=== PATIENT | female | born 1930 | race Caucasian/White ===

== ENCOUNTER 2017-12-15 14:07 | Emergency (ER) | payer OTHER, MEDICARE, BC ==
[~2017-12-15] VITALS: Ht 165.1 cm; Wt 73.6 kg
[~2017-12-15 14:07] MED LIST: IMODIUM A-D2 MG PO; LUTEIN20 MG PO; MOBIC 7.5MG7.5 MG PO; TIROSINT75 MCG PO; VYTORIN 10 MG-21 TAB PO; XANAX .25M0.25 MG/TA PO
[2017-12-15 14:09] VITALS: TEMP 96.9
[2017-12-15] MEDS ORDERED: ASPIRIN 81M81 MG/TA2 PO (14:27)
[2017-12-15] MEDS ORDERED: PRAVACHOL 40MG40 MG PO (14:27)
[2017-12-15] MEDS ORDERED: FOSAMAX 70MG TA70 MG PO (14:28)
[2017-12-15] MEDS ORDERED: HYGROTON 2525 MG/TAB (14:29)
[2017-12-15] MEDS ORDERED: L-LYSINE500 M1 (14:30)
[2017-12-15] MEDS ORDERED: GLUCOSAMIN 500 (14:30)
[2017-12-15] MEDS ORDERED: THERATEARS SGL PO (14:30)
[2017-12-15] MEDS ORDERED: EPA FISH OIL1 SGL PO (14:31)
[2017-12-15 15:22] LABS: COLLECTION METHOD CLEAN CATCH
[2017-12-15 15:29] LABS: MUCOUS Present /lpf; PH 5 (5-8); SQUAMOUS EPITHELIAL 0-2 /hpf; URINE APPEARANCE Clear; URINE BACTERIA Rare /hpf; URINE BILIRUBIN Negative (NEGATIVE); URINE BLOOD Negative (NEGATIVE); URINE COLOR Yellow; URINE GLUCOSE Negative (NEGATIVE); URINE KETONE Negative (NEGATIVE); URINE LEUKOCYTE ESTERASE Negative (NEGATIVE); URINE NITRATE Negative (NEGATIVE); URINE PROTEIN(semi-quant) Negative (NEGATIVE); URINE RBC 0-2 /hpf; URINE UROBILINOGEN Negative (NEGATIVE)
[2017-12-15 16:38] VITALS: BP 179/76; PULSE 74
== END 2017-12-15 16:42 | disposition home or self-care (01) ==
LOC: COL.ER 14:07
DX: S20.211A Contusion of right front wall of thorax, initial encounter (principal); E03.9 Hypothyroidism, unspecified; Z79.82 Long term (current) use of aspirin; Z88.0 Allergy status to penicillin; V43.52XA Car driver injured in collision with other type car in traffic accident, initial encounter

== ENCOUNTER → 2018-12-27 | Outpatient (CLI) | payer MEDICARE, BC ==
[~2018-12-27] MED LIST changes: +ASPIRIN 81M81 MG/TA2 PO; +EPA FISH OIL1 SGL PO; +FOSAMAX 70MG TA70 MG PO; +GLUCOSAMIN 500; +HYGROTON 2525 MG/TAB; +L-LYSINE500 M1; +PRAVACHOL 40MG40 MG PO; +THERATEARS SGL PO
== END ==
LOC: COL.PUL 09:36
DX: R06.09 Other forms of dyspnea (principal); R09.89 Other specified symptoms and signs involving the circulatory and respiratory systems; Z87.891 Personal history of nicotine dependence

== ENCOUNTER 2020-02-24 11:53 | Day surgery (SDC) | payer MEDICARE, BC ==
[~2020-02-24] VITALS: Ht 165.1 cm; Wt 72.3 kg
[2020-02-24] VITALS (11 sets, daily range): BP systolic 105–136; BP diastolic 53–72; PULSE 52–67; TEMP 97.8
[2020-02-24 12:28] LABS: HEMATOCRIT 39.3 % (37.0-47.0); MEAN CELL VOLUME 90 fl (80.0-100.0); MEAN CORPUSCULAR HEMOGLOBIN 30 pg (27.0-31.0); MEAN CORPUSCULAR HGB CONC 33 g/dl (33.0-37.0); MEAN PLATELET VOLUME 10.6 fl (7.4-10.4); PLATELET COUNT 227 K/mm3 (130-400); RED BLOOD COUNT 4.38 M/mm3 (4.10-5.30); REDCELL DISTRIBUTION WIDTH-CV 13.9 % (11.5-14.5)
[2020-02-24 12:34] LABS: CALCIUM 9.4 mg/dL (8.4-10.2); CREATININE, serum 0.95 (0.52-1.25); POTASSIUM 3.6 mmol/L (3.4-5.0); PROTHROMBIN TIME 10.6 SECONDS (9.7-12.8)
[2020-02-24 12:37] LABS: PARTIAL THROMBOPLASTIN TIME 29.8 SECONDS (26.0-37.0)
[2020-02-24] MEDS ORDERED: HYGROTON 2525 MG/TAB PO (12:48)
[2020-02-24] MEDS ORDERED: SYNTHROID0.075 MG/T PO (12:48)
[2020-02-24] MEDS ORDERED: THERATEARS 15 M15 ML OP (12:49)
[2020-02-24] MEDS ORDERED: GLUCOSAMIN 500 PO (12:49)
[2020-02-24] MEDS ORDERED: B-121000 MCG PO (12:49)
[2020-02-24] MEDS ORDERED: LYSINE1000 MG PO (12:50)
[2020-02-24] MEDS ORDERED: MASON NATURAL2000 IU PO (12:50)
[2020-02-24] MEDS ORDERED: LUTEIN20 M1 PO (12:50)
[2020-02-24] MEDS ORDERED: FISH OIL 1000MG1 CAP PO (12:50)
[2020-02-24] MEDS ORDERED: TUMS ULTRA ST1000 MG PO (12:51)
[2020-02-24] MEDS ORDERED: ASPIRIN E.C. 8181 MG PO (12:51)
[2020-02-24] MEDS ORDERED: FLONASEALLERGY NS (12:52)
--- NOTE | 2020-02-24 13:57 | NUR ---
SEE MERGE FOR ALL MEDICATION ADMINISTRATION TIMES, INTRA AND POST SEDATION ASSESSMENT
--- NOTE | 2020-02-24 18:18 | NUR ---
Report given to KERRY Mosher. Pt eating dinner. Free of complaints. Air has been removed from TR band in 2ml increments, Vidhi will continue to remove air and monitor puncutre sites. Dressing to rt groin changed using sterile technique. Pedal pulses remain strong.
--- NOTE | 2020-02-24 18:32 | NUR ---
BS report received from Navdeep PAYNE. pt is awake and alert, pwd, rt radial site looks good, TR band removed and site dressed with bandaid, folded 2x2 and coban. cms intact distal, splint back on arm. rt femoral site remains soft. there was a small amt blood on dressing, dressing replaced using sterile technique, very slow ooze noted to puncture site. wctm. cms intact distal vitals remain stable. pt sitting up with hob 30deg, eating dinner. call light in reach. pt is aware of poc.
--- NOTE | 2020-02-24 19:00 | NUR ---
Pt's bedrest period is complete and pt is up and ambulatory in room with steady gait. rt groin site remains soft without hematoma. there is small amt blood on new dressing, for which I held pressure on site while pt waited for ride, area of blood did not expand. iv was dc;d with cath intact, dressing was applied. i reviewed dc and fu instructions with pt who denied questions. Wrist site continues to remain soft with cms intact distal. I escorted pt to exit at 1930 when her arrived.
== END 2020-02-24 20:09 | disposition home or self-care (01) ==
LOC: COL.CAR 11:53
PROVIDERS: Internal Medicine Interventional Cardiology
DX: I25.10 Atherosclerotic heart disease of native coronary artery without angina pectoris (principal); E78.5 Hyperlipidemia, unspecified; E03.9 Hypothyroidism, unspecified; I12.9 Hypertensive chronic kidney disease with stage 1 through stage 4 chronic kidney disease, or unspecified chronic kidney disease; N18.30 Chronic kidney disease, stage 3 unspecified; J44.9 Chronic obstructive pulmonary disease, unspecified; Z79.82 Long term (current) use of aspirin; Z79.51 Long term (current) use of inhaled steroids; Z88.0 Allergy status to penicillin
CPT/HCPCS: J1644; J2250; J3010; Q9967